=== PATIENT | female | born 1945 | race Caucasian/White ===

== ENCOUNTER 2022-10-19 01:32 | Emergency (ER) | payer MEDICARE, BC ==
[~2022-10-19] VITALS: Ht 158.8 cm; Wt 87.8 kg
[2022-10-19 02:39] LABS: BASOPHILS # (AUTO) 0.1 X10'3 (0-0.2); BASOPHILS % (AUTO) 1.2 % (0-1); EOSINOPHILS # (AUTO) 0.3 X10'3 (0-0.9); EOSINOPHILS % (AUTO) 3.6 % (0-6); HEMATOCRIT 39.5 % (35.0-45.0); HEMOGLOBIN 13.4 g/dl (12.0-16.0); LYMPHOCYTES % (AUTO) 22.3 % (21-51); MEAN CORPUSCULAR HEMOGLOBIN 28.7 PG (27.0-31.0); MEAN CORPUSCULAR HGB CONC 33.9 g/dL (33.0-36.5); MEAN CORPUSCULAR VOLUME 84.6 FL (78-98); MEAN PLATELET VOLUME 7.3 FL (7.4-10.4); MONOCYTES # (AUTO) 0.9 X10'3 (0-0.9); NEUTROPHILS # (AUTO) 5.7 X10'3 (1.8-7.7); NEUTROPHILS % (AUTO) 62.9 % (42-75); PLATELET COUNT 306 X10'3 (140-440); RED BLOOD COUNT 4.67 X10'6 (4.20-5.60); RED CELL DISTRIBUTION WIDTH 13.9 % (11.5-14.5); WHITE BLOOD COUNT 9.1 X10'3 (4.5-11.0)
[2022-10-19] MEDS ORDERED: mag hydrox/Alum hydrox/simeth 30ml oral suspension PO ONE (02:45)
[2022-10-19] MEDS ORDERED: ondansetron/PF 4mg/2ml inj IV ONE (02:45)
[2022-10-19] MEDS ORDERED: famotidine/PF 10 mg/ml inj IV ONE (02:45)
[2022-10-19] MEDS ORDERED: LIDOcaine Viscous 15ml cup MM ONE (02:45)
[2022-10-19 02:57] LABS: CLARITY,URINE CLEAR (Clear); COLOR,URINE YELLOW (Yellow); GLUCOSE, URINE NEGATIVE (Neg); KETONES,URINE NEGATIVE (Neg); LEUKOCYTE ESTERASE ,URINE NEGATIVE (Neg); NITRITES, URINE NEGATIVE (Neg); OCCULT BLOOD,URINE NEGATIVE (Neg); PROTEIN,URINE NEGATIVE (Neg); UROBILINOGEN,URINE 0.2 E.U/dL (0.2-1.0)
[2022-10-19 03:02] LABS: ALANINE AMINOTRANSFERASE 37 U/L (12-78); ALBUMIN 4.1 G/DL (3.4-5.0); ALBUMIN/GLOBULIN RATIO 1.2 (1.1-1.5); ALKALINE PHOSPHATASE 129 IU/L (46-116); ANION GAP 10 (8-16); ASPARTATE AMINO TRANSFERASE 26 U/L (10-37); BILIRUBIN,TOTAL 0.3 MG/DL (0.1-1.0); BLOOD UREA NITROGEN 20 MG/DL (7-18); CALCIUM 9.4 MG/DL (8.5-10.1); CHLORIDE 106 MMOL/L (99-107); CREATININE 0.87 MG/DL (0.40-0.90); GLUCOSE 107 MG/DL (70-104); POTASSIUM 4.3 MMOL/L (3.5-5.1); SODIUM 142 MMOL/L (135-145); TOTAL CARBON DIOXIDE 26.1 MMOL/L (24-32); TOTAL PROTEIN 7.4 G/DL (6.4-8.2); eGFR 64 ML/MIN
[2022-10-19 03:11] LABS: UA COLLECTION TYPE CLN CATCH MIDSTREAM
[2022-10-19] MEDS ORDERED: cyclobenzaprine 10mg tablet PO ONE (04:00)
[2022-10-19] MEDS ORDERED: normal saline 1000ml 1,000 ML IV ONE (04:00)
[2022-10-19] MEDS ORDERED: ketorolac trometh. 30mg/ml inj. IV ONE (04:00)
[2022-10-19] MEDS ORDERED: pantoprazole 40mg IV 80 MG in normal saline 100ml IV soln 100 ML IV ONE (04:00)
[2022-10-19] MEDS ORDERED: acetaminophen 325mg tablet PO ONE (04:00)
[2022-10-19 05:00] VITALS: BP 129/76
[2022-10-19] MEDS ORDERED: PANT-47 PO (05:05)
[2022-10-19] MEDS ORDERED: CYCL-1 PO (05:05)
== END 2022-10-19 05:24 | disposition home or self-care (01) ==
LOC: ER 01:34
DX: R07.89 Other chest pain (principal); M54.9 Dorsalgia, unspecified; I10 Essential (primary) hypertension; E78.00 Pure hypercholesterolemia, unspecified; K21.9 Gastro-esophageal reflux disease without esophagitis
CPT/HCPCS: 36415; 71045; 80053; 81003; 83880; 84484; 85025; 93005; 96365; 96375; 99285; C9113; J1885; J2405; J3490; J7030

== ENCOUNTER 2025-05-02 04:59 | Emergency (ER) | payer MEDICARE, BC ==
[~2025-05-02] VITALS: Ht 157.5 cm; Wt 84.0 kg
[~2025-05-02 04:59] MED LIST: CYCL-1 PO; DICY20TA17 PO; HYDR-3964 PO; LIDO15SO9 PO; ONDA-243 PO; PANT-47 PO
[2025-05-02 05:21] VITALS: TEMP 97.9
[2025-05-02 06:21] VITALS: BP 119/78; PULSE 74; RESP 18; O2SAT 100
== END 2025-05-02 08:09 | disposition left against medical advice (07) ==
LOC: ER 04:59
DX: M79.645 Pain in left finger(s) (principal); Z53.21 Procedure and treatment not carried out due to patient leaving prior to being seen by health care provider